=== PATIENT | female | born 1980 | race Caucasian/White ===

== ENCOUNTER 2017-03-04 16:22 | Emergency (ER) | payer MEDICAID ==
[~2017-03-04] VITALS: Ht 162.6 cm; Wt 70.0 kg
[2017-03-04 16:30] VITALS: BP 115/73
== END 2017-03-04 19:19 | disposition left against medical advice (07) ==
LOC: ER 17:08
DX: F41.9 Anxiety disorder, unspecified (principal); Z53.21 Procedure and treatment not carried out due to patient leaving prior to being seen by health care provider